=== PATIENT | male | born 1945 | race Caucasian/White ===

== ENCOUNTER → 2019-06-30 | Outpatient (CLI) | payer OTHER ==
[~2019-06-30] MED LIST: ASPIR 8181 MG PO; ATIVAN1 MG PO; AVAPRO 150 MG150 M1 PO; CARTIA XT240 M1 PO; CLOPIDOGREL75 MG PO; HYDRALAZINE 10M10 MG PO; LIPITOR40 MG PO; TRI-BUFFERED A325 M1 PO
--- NOTE | 2019-06-30 10:35 | NUR ---
SOLUMEDROL 125 MG IVP AND BENADRYLL 25 MG IVP GIVEN PER WRITTEN ORDER FROM LUKE DIGGS MD FOR SHRIMP ALLGERY PRIOR TO CTA OF LEGS. SCANNER NOT AVAILABLE TO DOCUMENT IN EMAR. AAOX4, SPEAKING IN COMPLETE SENTENCES, AMBULATES WITH STAND BY ASSISTANCE, SKIN PWD, NAD NOTED. CT AWARE OF PT.
[2019-06-30 10:40] LABS: CALCIUM 9.7 mg/dL (8.5-10.1); CREATININE 1.1 mg/dL (0.7-1.3); POTASSIUM 4.4 mmol/L (3.5-5.1)
== END ==
LOC: CAT 09:37
PROVIDERS: Nuclear Medicine Nuclear Cardiology
DX: I73.9 Peripheral vascular disease, unspecified (principal); I70.0 Atherosclerosis of aorta; I25.10 Atherosclerotic heart disease of native coronary artery without angina pectoris; J90 Pleural effusion, not elsewhere classified; M47.816 Spondylosis without myelopathy or radiculopathy, lumbar region; D73.89 Other diseases of spleen; K55.069 Acute infarction of intestine, part and extent unspecified; I74.5 Embolism and thrombosis of iliac artery; I77.1 Stricture of artery

== ENCOUNTER 2019-07-16 10:55 | Observation (INO) | payer OTHER ==
[~2019-07-16] VITALS: Ht 180.3 cm; Wt 77.1 kg
[2019-07-16] VITALS (8 sets, daily range): BP systolic 118–155; BP diastolic 54–75
[~2019-07-16 10:55] MED LIST changes: -CLOPIDOGREL75 MG PO; -TRI-BUFFERED A325 M1 PO
[2019-07-16 11:44] LABS: HEMATOCRIT 42.4 % (42.0-52.0); HEMOGLOBIN 14.3 gm/dL (14.0-18.0); MCH 32.1 pg (26.0-34.0); MCHC 33.7 g/dL (28.0-37.0); MCV 95.4 fL (80.0-100.0); RBC 4.44 mil/uL (4.50-6.00); RDW 13.7 % (10.5-14.5); WBC 7.1 thou/uL (4.0-11.0)
[2019-07-17 00:36] VITALS: BP 169/79
[2019-07-17 03:50] VITALS: BP 147/80
[2019-07-17] MEDS ORDERED: CLOPIDOGREL75 MG PO (07:36)
[2019-07-17] MEDS ORDERED: TRI-BUFFERED A325 M1 PO (07:36)
[2019-07-17 07:57] VITALS: BP 144/76
[2019-07-17 11:25] VITALS: BP 142/67
[2019-07-17 14:37] VITALS: BP 142/67
== END 2019-07-17 15:25 | disposition home or self-care (01) ==
LOC: CATH 10:55 → 2N 17:13 → ENTRNSPT 07-17 15:10 → EDTRNSPTSTS 07-17 15:12 → 2N 07-17 15:25
PROVIDERS: Nuclear Medicine Nuclear Cardiology; ADMIT Internal Medicine Cardiovascular Disease
DX: I70.202 Unspecified atherosclerosis of native arteries of extremities, left leg (principal); I70.1 Atherosclerosis of renal artery; I25.10 Atherosclerotic heart disease of native coronary artery without angina pectoris; I48.0 Paroxysmal atrial fibrillation; I10 Essential (primary) hypertension; E78.5 Hyperlipidemia, unspecified; Z95.1 Presence of aortocoronary bypass graft; Z86.73 Personal history of transient ischemic attack (TIA), and cerebral infarction without residual deficits; Z79.82 Long term (current) use of aspirin; Z79.899 Other long term (current) drug therapy

== ENCOUNTER → 2019-11-11 | Outpatient (CLI) | payer OTHER ==
[~2019-11-11] MED LIST changes: +CLOPIDOGREL75 MG PO; +TRI-BUFFERED A325 M1 PO
== END ==
LOC: SJCVCIMAG 08:49
DX: I65.23 Occlusion and stenosis of bilateral carotid arteries (principal); I45.2 Bifascicular block; I11.9 Hypertensive heart disease without heart failure; I08.2 Rheumatic disorders of both aortic and tricuspid valves; I70.201 Unspecified atherosclerosis of native arteries of extremities, right leg; R94.31 Abnormal electrocardiogram [ECG] [EKG]; I25.10 Atherosclerotic heart disease of native coronary artery without angina pectoris; I48.0 Paroxysmal atrial fibrillation; E78.00 Pure hypercholesterolemia, unspecified; Z90.49 Acquired absence of other specified parts of digestive tract; Z79.899 Other long term (current) drug therapy; Z86.73 Personal history of transient ischemic attack (TIA), and cerebral infarction without residual deficits; Z87.891 Personal history of nicotine dependence

== ENCOUNTER → 2020-03-25 | Outpatient (CLI) | payer OTHER ==
[~2020-03-25] MED LIST changes: +CARTIA XT180 M1 PO; +KLOR-CON 10 ER10 MEQ PO; +LORAZEPAM 1 MG T1 MG PO; +MELATONIN5 MG SUBLING; +TORSEMIDE20 MG PO; +XARELTO1 EACH PO
== END ==
LOC: SJCVCIMAG 07:44
PROVIDERS: ATTEND Internal Medicine Cardiovascular Disease
DX: I70.202 Unspecified atherosclerosis of native arteries of extremities, left leg (principal); I70.291 Other atherosclerosis of native arteries of extremities, right leg; I48.91 Unspecified atrial fibrillation; I45.2 Bifascicular block; R94.31 Abnormal electrocardiogram [ECG] [EKG]; I25.10 Atherosclerotic heart disease of native coronary artery without angina pectoris; E78.00 Pure hypercholesterolemia, unspecified; I10 Essential (primary) hypertension; Z95.820 Peripheral vascular angioplasty status with implants and grafts; Z87.891 Personal history of nicotine dependence; Z79.82 Long term (current) use of aspirin; Z79.899 Other long term (current) drug therapy; Z90.49 Acquired absence of other specified parts of digestive tract; Z95.1 Presence of aortocoronary bypass graft

== ENCOUNTER 2020-04-05 10:17 | Outpatient (CLI) | payer OTHER ==
[~2020-04-05] VITALS: Ht 180.3 cm; Wt 79.4 kg
[~2020-04-05 10:17] MED LIST changes: -CARTIA XT180 M1 PO; -KLOR-CON 10 ER10 MEQ PO; -LORAZEPAM 1 MG T1 MG PO; -MELATONIN5 MG SUBLING; -TORSEMIDE20 MG PO; -XARELTO1 EACH PO
[2020-04-05 11:40] LABS: HEMATOCRIT 41.3 % (42.0-52.0); HEMOGLOBIN 13.6 gm/dL (14.0-18.0); MCH 30.6 pg (26.0-34.0); MCHC 32.8 g/dL (28.0-37.0); MCV 93.4 fL (80.0-100.0); RBC 4.43 mil/uL (4.50-6.00); RDW 15.6 % (10.5-14.5); WBC 5.4 thou/uL (4.0-11.0)
[2020-04-05 11:51] LABS: CALCIUM 8.4 mg/dL (8.5-10.1); CREATININE 1.4 mg/dL (0.7-1.3); POTASSIUM 3.9 mmol/L (3.5-5.1)
[2020-04-05 12:33] VITALS: BP 119/52
[2020-04-05] MEDS ORDERED: XARELTO1 EACH PO (12:50)
[2020-04-05] MEDS ORDERED: MELATONIN5 MG SUBLING (18:16)
[2020-04-05] MEDS ORDERED: CARTIA XT180 M1 PO (18:22)
[2020-04-05] MEDS ORDERED: TORSEMIDE20 MG PO (18:23)
[2020-04-05] MEDS ORDERED: LORAZEPAM 1 MG T1 MG PO (18:25)
[2020-04-05] MEDS ORDERED: KLOR-CON 10 ER10 MEQ PO (18:27)
[2020-04-05 18:30] VITALS: BP 152/78
[2020-04-05 18:45] VITALS: BP 158/81
[2020-04-05 19:39] VITALS: BP 155/67
[2020-04-06 00:20] VITALS: BP 148/71
[2020-04-06 04:21] LABS: HEMATOCRIT 40.3 % (42.0-52.0); HEMOGLOBIN 13.6 gm/dL (14.0-18.0); MCHC 33.7 g/dL (28.0-37.0); MCV 92.1 fL (80.0-100.0); RBC 4.38 mil/uL (4.50-6.00); RDW 15.3 % (10.5-14.5); WBC 7.3 thou/uL (4.0-11.0)
[2020-04-06 04:46] LABS: ALBUMIN 2.6 g/dL (3.4-5.0); CALCIUM 8.3 mg/dL (8.5-10.1); CREATININE 1.4 mg/dL (0.7-1.3); POTASSIUM 3.7 mmol/L (3.5-5.1); TOTAL BILIRUBIN 0.4 mg/dL (0.2-1.0); TOTAL PROTEIN 5.6 g/dL (6.4-8.2); TROPONIN-I 0.08 ng/mL (<0.06)
[2020-04-06 05:15] VITALS: BP 131/60
--- NOTE | 2020-04-06 06:47 | NUR ---
PATIENT A/O X 3.FORGETFUL.OFF BEDREST AT 2100.LEFT GROIN C/D/I.PRASAD DISCONTINUED.VOIDED.MONITOR SHOWS AFIB.POC CONTINUED.
--- NOTE | 2020-04-06 07:41 | EKG ---
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 : 1945 Requested By: Fortunato Alva Order Number: [id number] MD: Jarek Pena Measurements Intervals [place] Rate: 45 P: WI: QRS: -76 QRSD: 163 T: 17 QT: 532 QTc: 461 Interpretive Statements Atrial fibrillation Right bundle branch block Compared to ECG 07/06/1997 07:04:00 Right bundle-branch block now present Sinus rhythm no longer present Electronically Signed On 04-06-2020 7:40:58 CDT by Jarek Pena [email or web address] <ELECTRONICALLY SIGNED> By: Jarek Pena MD, [facility] 04/06/20 0740 1114 1114 Jarek Pena MD, [facility] /EPI
--- NOTE | 2020-04-06 07:51 | EKG ---
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1945 Requested By: Fortunato Alva Order Number: [id number] MD: Jarek Pena Measurements Intervals [place] Rate: 50 P: OR: QRS: -76 QRSD: 158 T: -1 QT: 516 QTc: 471 Interpretive Statements Atrial fibrillation Right bundle branch block Compared to ECG 04/05/2020 11:14:33 No significant changes Electronically Signed On 04-06-2020 7:50:59 CDT by Jarek Pena [email or web address] <ELECTRONICALLY SIGNED> By: Jarek Pena MD, [facility] 04/06/20 [phone] Jarek Pena MD, [facility] /EPI
[2020-04-06] MEDS ORDERED: CLOPIDOGREL75 MG PO (08:11)
[2020-04-06 08:22] VITALS: BP 132/62
[2020-04-06 10:02] VITALS: BP 132/62
--- NOTE | 2020-04-06 11:31 | NUR ---
ASSUMED CARE 0700. PT ALERT X4, DENIES CHEST PAIN, DENIES SOB, AFIB/SB ON TELE. DR HENDERSON NOTIFIED OF LOW HEART RATE WILL PLACE HOLTER MONITOR ON DISCHARGE. INSTRUCTOR LOOPING NOTIFIED PRIMARY RN AND DR HENDERSON PT VOICED DIZZINESS WHEN SITTING UP. REHAB REVIEWED POST CARDIAC CATH/STENT CARE, REVIEWED MEDICATIONS, AND PARTICIPATING IN CARDIAC REHAB PROGRAM. IV AND TELE REMOVE. DC PAPER WORK REVIEWED AND SIGNED. HOME WITH SELF CARE.
[2020-04-06 11:36] VITALS: BP 132/62
--- NOTE | 2020-04-06 17:58 | CATHLAB ---
[facility] [place] [address] INVASIVE PROCEDURE REPORT Name: NOLBERTO MIGUEL Room #: DEP VERONICA Dwyer#: [id number] Admission: 04/05/20 Attend Phys: Scott Vizcarra MD Discharge: 04/06/20 Date of : 43 Report #: [id number] THIS REPORT FOR: cc: FAM - No family physician/PCP FAM - No family physician/PCP Fortunato Alva MD [facility] ~ APPROVED REPORT Study performed: 04/05/2020 14:48:35 Patient Details Patient Status: Out-Patient Room #: The patient is a 75 year-old male Event Personnel Fortunato Alva Photography Colorist, Ant Granger RN RN, Thais Etienne RT(R)() Michael Galeas Ja'net RTR Monitor, Zora Iraheta RTR, SELF PAY COLLECTOR Monitor, Luzma Da Silva RN Procedures Performed Art Access - L femoral artery* Syed Access - L femoral vein Right and Left Heart Cath Lt Vent/Cors/Grafts [id number] RLLVCORCAB DEISY Revasc Graft Single OM C9604 SVGREVSING 24821 Initial Mod Sed Same Phys/QHP Gr5y 495240 61991 Mod Sed Same Phys/QHP Ea 762902 Hemostasis w/ Mynx Hemostasis with Manual pressure Indication Chest pain Procedure Narrative A SHEATH BRITE-TIP 6F X 11CM ([id number]) sheath was inserted into the LFA. Coronary angiography was performed using coronary diagnostic catheters. The right coronary system was accessed and visualized with a JR4 catheter. The left coronary system was accessed and visualized with a JL4 catheter. The left ventricle was accessed and visualized with a pigtail catheter. Left ventricular/Aortic Valve gradient assessed via catheter pullback. Left ventriculogram was performed in 30 degree projection. Closure device was deployed with a 6 Fr MYNX CONTROL 6F/7F L#[id number]. Hemostasis was obtained with manual pressure following sheath removal without any complications. The patient tolerated the procedure well and there were no complications associated with the procedure. There was no hematoma. Intraoperative Conscious Sedation [address] [address] INVASIVE PROCEDURE REPORT Name: NOLBERTO MIGUEL Room #: [facility]P [id number] Admission: 04/05/20 Attend Phys: Scott Vizcarra, Discharge: 04/06/20 Date of : 43 Report #: [id number] Sedation start time: 14:10 Case end Time: 17:48 Fentanyl 300 mcg Versed 6 mg Conscious sedation is a combined total of peripheral procedure and right and left heart cath. Fluoro time and dose are a combined total of peripheral procedure and right and left heart cath. Visipaque is a combined total for peripheral procedure and right and left heart cath. Omnipaque 220ml was used for right and left heart cath. Fluoro Time: 21.54 minutes Dose: DAP 69350.70 cGycm2 2629 mGy Contrast Type and Amount: Visipaque 132 ml Hemodynamics The right atrial mean pressure is 21 mmHg. The right ventricular pressure is 56/12 mmHg. The pulmonary artery pressure is 64/22 mmHg with a mean of 42 mmHg. The mean pulmonary capillary wedge pressure is 33 mmHg. The aortic pressure is 162/61 mmHg with a mean of 85 mmHg. The left ventricular pressure is 168/22 mmHg with a mean of mmHg. The left ventricular end diastolic pressure is 35 mmHg. The cardiac output using thermo method is 5.80 L/min. The cardiac index using thermo method is 2.91 L/min/m2. PCI Technique Lesion Percutaneous coronary intervention was performed on the [facility]. A LAUNCHER 6FR LCB #[id number] Guide Catheter was used to engage the ostium. A Luge Wire .014 x 182CM #[id number] Interventional Guidewire was used to cross the lesion. BALLOON DILATION A Balloon catheter Sprinter OTW 2.5 x 12 #[id number] was inserted and inflated up to 18atm for 25seconds. Additional Inflation: 18atm for 12seconds. A balloon catheter, 3.0 x 12 NC Trek OTW was inserted and inflated up to 20 magen for 26 seconds. STENT DEPLOYMENT A drug-eluting stent RESOLUTE PAMELA OTW 2.75 X 8 #[id number] was inserted and inflated up to 18atm for 27seconds. POST STENT DEPLOYMENT BALLOON DILATION A Balloon catheter TREK NC OTW 3.25 X 8 was inserted and inflated up to 22atm for 29seconds. Additional Inflation: 24atm for 24seconds. [facility] [place] [address] INVASIVE PROCEDURE REPORT Name: NOLBERTO MIGUEL Room #: [facility] M.RAries#: [id number] Admission: 04/05/20 Attend Phys: Scott Vizcarra, Discharge: 04/06/20 Date of : 43 Report #: [id number] Conclusion 1. Successful PTCA stent of a high-grade complex calcified proximal vein graft to his extensive OM system. To less than 10% residual with placement of a 275 resolute stent postdilated 3.5 mm CRICKET grade III flow in this extensive OM system moderately diseased. #2 the [place] circumflex is occluded. #3 the left main and LAD essentially occluded. No significant filling #4 MOTTA intact with mild irregularities to an LAD which is mildly disease extends around the apex somewhat of an attenuated small vessel. #5 dominant right coronary artery eccentric and calcified proximal and mid vessel lesion in the 70 to 80% range mid vessel extensive calcification with preserved PDA HELEN will follow this mid vessel lesion carefully. The extent of calcium and tortuosity will make this technically difficult to intervene on. #6 SVG is moderately diseased filling a relatively small diagonal system but briskly filled with a mid distal 70% vein graft lesion still larger than the caliber of the diagonal of its filling. #7 normal left ventricular size subtle lateral wall hypokinesis EF 50% range. Recommendations and plan: Continue aggressive risk factor modification. Is technically difficult stenosis with a good result in this vein graft to an extensive OM system. The right coronary artery would be a difficult intervention. Will see how patient progresses with regards to anginal symptoms and stress testing in the future. Patient transferred to CCU to follow post coronary stent protocol stable and pain-free. <ELECTRONICALLY SIGNED> By: Fortunato Alva MD, [facility] 04/06/20 1758 57 1758 Fortunato Alva MD, FACC /INF
== END 2020-04-06 12:08 | disposition home or self-care (01) ==
LOC: CATH 10:17 → 2N 18:05 → CATH 04-06 12:08
PROVIDERS: Internal Medicine Cardiovascular Disease; ATTEND Nuclear Medicine Nuclear Cardiology
DX: R07.9 Chest pain, unspecified (principal); I25.810 Atherosclerosis of coronary artery bypass graft(s) without angina pectoris; I70.213 Atherosclerosis of native arteries of extremities with intermittent claudication, bilateral legs; I70.1 Atherosclerosis of renal artery; I10 Essential (primary) hypertension; E78.00 Pure hypercholesterolemia, unspecified; I70.0 Atherosclerosis of aorta; I48.91 Unspecified atrial fibrillation; Z98.890 Other specified postprocedural states; Z79.899 Other long term (current) drug therapy; Z86.73 Personal history of transient ischemic attack (TIA), and cerebral infarction without residual deficits; Z90.49 Acquired absence of other specified parts of digestive tract; Z95.1 Presence of aortocoronary bypass graft; Z87.891 Personal history of nicotine dependence; Z88.8 Allergy status to other drugs, medicaments and biological substances
CPT/HCPCS: 10081

== ENCOUNTER → 2020-07-13 | Outpatient (CLI) | payer OTHER ==
[~2020-07-13] MED LIST changes: +CARTIA XT180 M1 PO; +KLOR-CON 10 ER10 MEQ PO; +LORAZEPAM 1 MG T1 MG PO; +MELATONIN5 MG SUBLING; +TORSEMIDE20 MG PO; +XARELTO1 EACH PO
== END ==
LOC: SJCVCIMAG 08:44
PROVIDERS: ATTEND Nuclear Medicine Nuclear Cardiology
DX: T82.856A Stenosis of peripheral vascular stent, initial encounter (principal); I70.203 Unspecified atherosclerosis of native arteries of extremities, bilateral legs; I45.10 Unspecified right bundle-branch block; I11.9 Hypertensive heart disease without heart failure; R94.31 Abnormal electrocardiogram [ECG] [EKG]; I25.10 Atherosclerotic heart disease of native coronary artery without angina pectoris; I77.9 Disorder of arteries and arterioles, unspecified; E78.00 Pure hypercholesterolemia, unspecified; I48.0 Paroxysmal atrial fibrillation; Z87.891 Personal history of nicotine dependence; Z79.899 Other long term (current) drug therapy; Y83.8 Other surgical procedures as the cause of abnormal reaction of the patient, or of later complication, without mention of misadventure at the time of the procedure; Y92.89 Other specified places as the place of occurrence of the external cause

== ENCOUNTER → 2021-02-22 | Outpatient (CLI) | payer OTHER | LOC: SJCVCIMAG 09:10 | PROVIDERS: ATTEND Internal Medicine Cardiovascular Disease | DX: R94.31 Abnormal electrocardiogram [ECG] [EKG] (principal); I45.2 Bifascicular block; I48.91 Unspecified atrial fibrillation; I25.10 Atherosclerotic heart disease of native coronary artery without angina pectoris; R06.00 Dyspnea, unspecified; I77.9 Disorder of arteries and arterioles, unspecified; I73.9 Peripheral vascular disease, unspecified; I10 Essential (primary) hypertension; E78.00 Pure hypercholesterolemia, unspecified; I65.23 Occlusion and stenosis of bilateral carotid arteries; Z86.73 Personal history of transient ischemic attack (TIA), and cerebral infarction without residual deficits; Z79.899 Other long term (current) drug therapy; Z87.891 Personal history of nicotine dependence; Z72.89 Other problems related to lifestyle; Z88.8 Allergy status to other drugs, medicaments and biological substances ==

== ENCOUNTER → 2021-04-12 | Outpatient (CLI) | payer OTHER | LOC: SJCVCIMAG 10:17 | PROVIDERS: ATTEND Nuclear Medicine Nuclear Cardiology | DX: I49.3 Ventricular premature depolarization (principal); I45.2 Bifascicular block; I70.201 Unspecified atherosclerosis of native arteries of extremities, right leg; M79.661 Pain in right lower leg; M79.662 Pain in left lower leg; I77.9 Disorder of arteries and arterioles, unspecified; I25.10 Atherosclerotic heart disease of native coronary artery without angina pectoris; I48.0 Paroxysmal atrial fibrillation; I10 Essential (primary) hypertension; E78.00 Pure hypercholesterolemia, unspecified; Z86.73 Personal history of transient ischemic attack (TIA), and cerebral infarction without residual deficits; Z87.891 Personal history of nicotine dependence; Z72.89 Other problems related to lifestyle; Z88.8 Allergy status to other drugs, medicaments and biological substances; Z88.1 Allergy status to other antibiotic agents; Z79.899 Other long term (current) drug therapy; Z95.1 Presence of aortocoronary bypass graft ==